=== PATIENT | female | born 1945 | race Caucasian/White ===

== ENCOUNTER 2018-12-31 04:45 | Day surgery (SDC) | payer OTHER ==
[2018-12-26 16:51] VITALS: BMI 44.9
[2018-12-31] MEDS ORDERED: ACETAMINOPHEN 325 MG TABLET (FP) PO PRN (10:18)
--- NOTE | 2018-12-31 10:18 | HP ---
History & Physical Update - History History: No Change - Physical Physical: No Change - Assessment Assessment: No Change - Plan Plan: No Change (Agree with H&P from 12/26/2018, for hysteroscopy and D&C for post menopausal bleeding/cervical stenosis)
[2018-12-31] MEDS ORDERED: LACTATED RINGERS SOLUTION 1,000 ML IV SCH ×2 (10:30→11:30)
[2018-12-31] MEDS ORDERED: PROPOFOL 20 ML ONE (10:31)
[2018-12-31] MEDS ORDERED: MIDAZOLAM HCL 2 MG/2 ML SINGLE DOSE VIAL ONE (10:32)
[2018-12-31] MEDS ORDERED: LIDOCAINE HCL/PF 2% SDV 5ML VIAL ONE (11:04)
[2018-12-31] MEDS ORDERED: KETOROLAC TROMETHAMINE 30 MG/1 ML VIAL ONE (11:04)
[2018-12-31] MEDS ORDERED: DEXAMETHASONE SOD PHOSPHATE 4 MG/1 ML VIAL ONE (11:04)
[2018-12-31] MEDS ORDERED: ONDANSETRON 4 MG/2 ML VIAL IVPUSH PRN (11:29)
[2018-12-31] MEDS ORDERED: oxyCODONE HCL 5 MG TABLET PO PRN (11:29)
--- NOTE | 2018-12-31 11:32 | OP ---
Operative Note - Note: Operative Date: 12/31/18 (90301) Pre-Operative Diagnosis: post menopausal bleeding, thickened endometrial stripe Operation: diagnostis hysteroscopy, D&C Post-Operative Diagnosis: Same as Pre-op Surgeon: Lidai Tomas Anesthesiologist/PAGINATOR: Jeevan Gandara Anesthesia: General (with LMA) Specimens Removed: endometrial curettings Estimated Blood Loss (mls): 5 Operative Report Dictated: Yes
[2018-12-31] MEDS ORDERED: ACETAMINOPHEN INJECTION 100 ML IVPB ONE (11:43)
[2018-12-31] MEDS ORDERED: ACETAMINOPHEN 1000 MG/100 ML VIAL (NON FORMULARY) IVPB ONE (12:29)
--- NOTE | 2018-12-31 13:49 | OP ---
DATE OF OPERATION: 12/31/2018 PREOPERATIVE DIAGNOSES: Postmenopausal bleeding, thickened endometrial stripe on ultrasound. POSTOPERATIVE DIAGNOSES: Postmenopausal bleeding, thickened endometrial stripe on ultrasound. PROCEDURE: Diagnostic hysteroscopy, dilation and curettage. SURGEON: Lidia Tomas MD ANESTHESIA: Laryngeal mask anesthesia by Carl Gandara MD BLUNGER: None. SPECIMENS REMOVED: Endometrial curettings. COMPLICATIONS: None. DISPOSITION: Stable to PACU. COUNTS: Sponge and instrument count reported to be correct at the end of the procedure. The patient is a 73-year-old female who had been seen in the office with complaints of postmenopausal bleeding. Endometrial biopsy was unsuccessful secondary to cervical stenosis. The patient was then scheduled for an outpatient hysteroscopy D&C. Consents were signed in the office. The consents were reconfirmed upon admission on December 31, 2018. She was then taken back to the operating room in the dorsal lithotomy position, given LM anesthesia, prepped and draped in the usual sterile fashion. A hard timeout was performed. A speculum was placed inside the vagina. The cervix was visualized and grasped with a tenaculum and dilated to accommodate a diagnostic hysteroscope, which was advanced to the fundus of the uterus. Multiple intrauterine polyps and polypoid tissue was noted on the anterior and posterior portion of the uterus. Sharp D&C was completed in all 4 mcbride of the uterus until adequate uterine cry was noted. The camera was placed back into the uterus. No evidence of uterine perforation was noted or other uterine trauma. All instruments were removed from the vagina. Minimal bleeding was noted from the tenaculum sites. Minimal bleeding was noted from the cervical os. The patient was awoken from anesthesia in stable condition and recovering in the PACU at the time of this dictation. LIDIA TOMAS DO /[id number]
[2018-12-31 18:53] VITALS: BP 125/71; PULSE 83; TEMP 98
--- NOTE | 2019-01-06 15:26 | PATH ---
Surgical Pathology Report Patient Name: JACI RICARDO Med. Rec. #: [id number] /Age/Gender: 1945 (Age: 73) / F Account: [id number] Location: [facility] SURGICAL Taken: 12/31/2018 Received: 12/31/2018 Reported: 01/06/2019 Physicians: Lidia Tomas M.D. Specimen(s) Received ENDOMETRIAL CURETTINGS Clinical History Postmenopausal bleeding, cervical stenosis Final Diagnosis ENDOMETRIAL CURETTINGS: POLYPOID FRAGMENTS OF ENDOMETRIUM WITH COMPLEX HYPERPLASIA WITH ATYPIA. 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 SEE COMMENT. BENIGN ENDOCERVICAL TISSUE. Comment: Immunohistochemical stains performed at [place], [place] ([id number]) and interpreted at [facility] show the detached squamoid fragments are negative for cytokeratin AE1/3, vimentin, and p16. Intradepartmental case reviewed with concordance of diagnosis. This case was discussed with Dr. Tomas on January 06, 2019. Electronically Signed Sully Regalado M.D. Gross Description Received in formalin labeled "endometrial curettings," is a 3.0 x 2.5 x 0.4 cm aggregate of may soft tissue fragments admixed with blood clot. The formalin is filtered and the specimen is entirely submitted in 2 cassettes. /12/31/201812/31/2018
== END 2018-12-31 13:40 | disposition home or self-care (01) ==
LOC: JASU-SURG 04:45
PROVIDERS: ATTEND Obstetrics & Gynecology
PROC: 0UDB7ZX Extraction of Endometrium, Via Natural or Artificial Opening, Diagnostic (ICD-10-PCS; principal; 2018-12-31 10:30)
PROC: 0UJD8ZZ Inspection of Uterus and Cervix, Via Natural or Artificial Opening Endoscopic (ICD-10-PCS; 2018-12-31 10:30)
DX: N95.0 Postmenopausal bleeding (principal)
CPT/HCPCS: 82962; 86850; 86900; 86901; 88305-TC; 94760; J0131